=== PATIENT | female | born 1950 | race Caucasian/White ===

== ENCOUNTER → 2016-07-05 | Outpatient (CLI) | payer OTHER | LOC: MMPC 11:11 | PROVIDERS: ATTEND Internal Medicine | DX: D64.9 Anemia, unspecified (principal); I10 Essential (primary) hypertension; Z86.2 Personal history of diseases of the blood and blood-forming organs and certain disorders involving the immune mechanism | CPT/HCPCS: 99214; G0463 ==

== ENCOUNTER → 2016-07-17 | Outpatient (CLI) | payer OTHER ==
[2016-07-17 08:06] LABS: HEMOGLOBIN 12.7 g/dL (12.0-16.0)
[2016-07-17 08:15] LABS: BASOPHILS # (AUTO) 0.04 10*3/UL; BASOPHILS % (AUTO) 1.2 % (0-1); EOSINOPHILS # (AUTO) 0.05 10*3/UL; EOSINOPHILS % (AUTO) 1.5 % (0-8); HEMATOCRIT 40.2 % (37.0-47.0); MEAN CORPUSCULAR HEMOGLOBIN 32.2 PG (27-31); MEAN CORPUSCULAR HGB CONC 31.6 g/dL (33-37); MEAN CORPUSCULAR VOLUME 101.8 FL (81-99); MEAN PLATELET VOLUME 9.7 FL (7.4-12.2); MONOCYTES # (AUTO) 0.36 10*3/UL (0.3-0.8); NEUTROPHILS % (AUTO) 55.3 % (50-80); RED BLOOD COUNT 3.95 10^6/uL (4.20-5.40)
[2016-07-17 08:17] LABS: PLATELET MORPHOLOGY COMMENT NORMAL MORPHOLOGY (NORM); RBC MORPHOLOGY COMMENT NORMAL MORPHOLOGY (NORM); WBC MORPHOLOGY COMMENT NORMAL MORPHOLOGY (NORM)
[2016-07-17 08:27] LABS: BLOOD UREA NITROGEN 21 mg/dL (7-22); CALCIUM 8.7 mg/dL (8.7-10.7); EST GLOMERULAR FILTRATION > 60 (>60 ml/min/1.73m(2)); SERUM ALBUMIN 4.1 g/dL (3.5-4.8)
[2016-07-17 09:32] LABS: CHOL/HDL RATIO 2.66 RATIO (0-4.0); HDL CHOLESTEROL 54 mg/dL (40-150); SERUM CHOLESTEROL 144 mg/dL (120-200)
[2016-07-17 09:37] LABS: C-REACTIVE PROTEIN < 0.5 mg/dL (0.0-0.9)
[2016-07-17 10:00] LABS: FREE T4 (FREE THYROXINE) 1.18 ng/dL (0.93-1.71)
== END ==
LOC: LAB 07:47
PROVIDERS: ATTEND Internal Medicine
DX: E03.9 Hypothyroidism, unspecified (principal); I10 Essential (primary) hypertension; D64.9 Anemia, unspecified; Z86.2 Personal history of diseases of the blood and blood-forming organs and certain disorders involving the immune mechanism
CPT/HCPCS: 36415; 80053; 80061; 82607; 82728; 83010; 83540; 83550; 83921; 84439; 84443; 85025; 85045; 85652; 86140

== ENCOUNTER → 2016-07-18 | Outpatient (CLI) | payer OTHER ==
--- NOTE | 2016-07-18 15:04 | EKG ---
[address] [address] Measurements Intervals [place] Rate: 64 P: 34 NV: 137 QRS: 59 QRSD: 85 T: 76 QT: 435 QTc: 444 Interpretive Statements SINUS RHYTHM No previous ECG available for comparison Electronically Signed On 07-19-16 07:40:08 MDT by Johnathan Irizarry MD [email or web address]
== END ==
LOC: MOB EKG 14:46
PROVIDERS: ATTEND Nurse Practitioner
DX: H25.89 Other age-related cataract (principal)
CPT/HCPCS: 93005; 93010; 99213; G0463